=== PATIENT | female | born 1990 | race Caucasian/White ===

== ENCOUNTER 2023-06-19 10:55 | Observation (INO) | payer OTHER, SELFPAY ==
[2023-06-19] VITALS (9 sets, daily range): BP systolic 123–140; BP diastolic 82–91; PULSE 94–134; RESP 12–30; TEMP 36.3–37.2; O2SAT 96–100; BMI 46.4; BMI 45.7
[2023-06-19 11:17] LABS: Bedside Glucose 101 mg/dL (74-106)
--- NOTE | 2023-06-19 11:22 | EDS_ITS ---
HPI <GAMALIEL Wall - Last Filed: 06/19/23 16:05> History of Present Illness Chief Complaint: Nausea/Vomiting Narrative Narrative: Patient is a 32-year-old female with history of obesity anxiety who is currently undergoing a clinical trial for a weight loss drug. It is similar to Ozempic however does have a different name. Patient states that she was building up her dose which she takes an injection every Friday. She started off it 0.25 then 0.5 now 1 mg. She tried 1 mg a few weeks ago, had significant constipation, belly pain as well as nausea and vomiting. They backed her off to 0.5. Patient this last Friday did try the 1 mg, patient states today she felt like she had to have a bowel movement at work, she was unable to go however the send felt sweaty, had multiple episodes of vomitus, became dizzy sweaty and called the ambulance. Patient denies any specific areas of pain, she is still passing gas. Denies any fever or chills. PFSH <GAMALIEL Wall - Last Filed: 06/19/23 16:05> [facility] Medical History (Updated 06/19/23 @ 16:05 by GAMALIEL Wall) Depression Home Medications CAGRISEMA 1 mg QWEEK 06/19/23 [History Last Taken 06/16/23] bupropion HCl 150 mg 24 hr tablet, extended release 150 mg PO DAILY 06/19/23 [History Last Taken 06/19/23] docusate sodium 100 mg capsule (Stool Softener) 100 mg PO DAILY PRN constipation 06/19/23 [History Last Taken Unknown] etonogestrel 68 mg subdermal implant (Nexplanon) 1 implant subdermal 06/19/23 [History Last Taken Unknown] fexofenadine 180 mg tablet (Maddison Allergy) 180 mg PO DAILY 06/19/23 [History Last Taken Unknown] fluoxetine 40 mg capsule 40 mg PO DAILY 06/19/23 [History Last Taken 06/19/23] loratadine 10 mg tablet (Allergy Relief (loratadine)) 10 mg PO DAILY 06/19/23 [History Last Taken 06/19/23] methylphenidate HCl 20 mg tablet 20 mg PO DAILY 06/19/23 [History Last Taken Unknown] ondansetron 4 mg disintegrating tablet 4 mg PO Q8H PRN PRN Nausea #10 tabs 06/19/23 [Rx Last Taken Unknown] spironolactone 100 mg tablet 100 mg PO DAILY 06/19/23 [History Last Taken Unknown] Allergy/AdvReac Type Severity Reaction Status Date / Time doxycycline Allergy Intermediate Hives Verified 06/19/23 11:11 Social History Smoking Status: Never smoker ROS <GAMALIEL Wall - Last Filed: 06/19/23 16:05> ROS ED ROS Narrative Constitutional: Negative for fever, chills, weight loss, weakness. Positive for sweating Eyes: Negative for vision loss, vision change, double vision ENT: Negative for any sore throat, ear pain, congestion Cardiovascular: Negative for any chest pain, tightness, palpitations Respiratory: Negative for any cough, sputum production, hemoptysis, dyspnea, dyspnea on exertion, orthopnea Gastrointestinal: Negative for any diarrhea, blood in stool, blood in vomit. Positive for abdominal pain, nausea and vomiting, constipation : Negative for any urinary frequency, dysuria, retention, blood in urine Muscle skeletal: Negative for any neck pain, back pain Neurological: Negative for any headache, syncope. positive for dizziness Skin: Negative for any rashes, itching, abrasions, lacerations Psychiatric: Negative for any depression, anxiety, stress, suicidal ideation, homicidal ideation Hematologic: Negative for any excessive bruising, easy bleeding EXAM <GAMALIEL Wall - Last Filed: 06/19/23 16:05> Physical Exam Narrative Exam Narrative: Vital signs reviewed. Patient is still somewhat diaphoretic, patient is tachycardic. Alert and oriented. HEET: Head normocephalic atraumatic, TMs clear bilaterally. Posterior pharynx is clear, dry mucous membranes. Nares clear bilaterally. Neck: Supple with no lymphadenopathy or tenderness. No signs of meningismus. Cardiac: Tachycardic rate no murmurs gallops or rubs, equal peripheral pulses bilaterally. Respiratory: Lungs clear to auscultation bilaterally. No chest tenderness. Abdomen: Soft, nontender, nondistended. No abdominal bruit or pulsatile masses. No hepatosplenomegaly Extremities: No peripheral edema, no signs of gross trauma or deformity. Active full range of motion of all extremities. Neuro: Cranial nerves II through XII intact, no focal neurological deficits. Skin: Clean dry and intact with no rash, purpura, petechiae, vesicles or pustules. Backs/flank: No CVA tenderness, no midline spinal tenderness, no deformity. Psych: Normal mood and affect. No SI, HI or acute psychosis. Const Vital Signs: 06/19/23 10:56 06/19/23 11:12 06/19/23 13:06 Temperature 97.6 F L 98 F Temperature Source Oral Pulse Rate 105 H 94 Pulse Rate [Lying] Pulse Rate [Sitting (for 1 minute prior to obtaining)] Pulse Rate [Standing (for 1 minute prior to obtaining)] Respiratory Rate 30 H 16 Respiratory Effort Normal Respiratory Pattern Tachypnea Blood Pressure 123/90 H 137/82 H Blood Pressure [Lying] Blood Pressure [Sitting (for 1 minute prior to obtaining)] Blood Pressure [Standing (for 1 minute prior to obtaining)] Blood Pressure Mean 101 100 Blood Pressure Mean [Lying] Blood Pressure Mean [Sitting (for 1 minute prior to obtaining)] Blood Pressure Mean [Standing (for 1 minute prior to obtaining)] Pulse Ox 96 100 Oxygen Delivery Method Room Air 06/19/23 13:43 06/19/23 14:24 06/19/23 15:36 Temperature 97.6 F L Temperature Source Oral Pulse Rate 117 H 111 H Pulse Rate [Lying] 102 H Pulse Rate [Sitting (for 1 minute prior to obtaining)] 110 H Pulse Rate [Standing (for 1 minute prior to obtaining)] 134 H Respiratory Rate 12 16 Respiratory Effort Respiratory Pattern Blood Pressure 137/86 H 140/88 H Blood Pressure [Lying] 137/82 H Blood Pressure [Sitting (for 1 minute prior to obtaining)] 135/91 H Blood Pressure [Standing (for 1 minute prior to obtaining)] 135/82 H Blood Pressure Mean 103 105 Blood Pressure Mean [Lying] 100 Blood Pressure Mean [Sitting (for 1 minute prior to obtaining)] 105 Blood Pressure Mean [Standing (for 1 minute prior to obtaining)] 99 Pulse Ox 96 100 Oxygen Delivery Method Room Air Room Air 06/19/23 15:55 Temperature 97.3 F L Temperature Source Pulse Rate 111 H Pulse Rate [Lying] Pulse Rate [Sitting (for 1 minute prior to obtaining)] Pulse Rate [Standing (for 1 minute prior to obtaining)] Respiratory Rate 15 Respiratory Effort Respiratory Pattern Blood Pressure 135/82 H Blood Pressure [Lying] Blood Pressure [Sitting (for 1 minute prior to obtaining)] Blood Pressure [Standing (for 1 minute prior to obtaining)] Blood Pressure Mean 99 Blood Pressure Mean [Lying] Blood Pressure Mean [Sitting (for 1 minute prior to obtaining)] Blood Pressure Mean [Standing (for 1 minute prior to obtaining)] Pulse Ox 97 Oxygen Delivery Method Positive obese Nutritional Appearance: obese <Dr. Simone Phoenix MD - Last Filed: 06/19/23 17:35> Physical Exam Const Vital Signs: 06/19/23 10:56 06/19/23 11:12 06/19/23 13:06 Temperature 97.6 F L 98 F Temperature Source Oral Pulse Rate 105 H 94 Pulse Rate [Lying] Pulse Rate [Sitting (for 1 minute prior to obtaining)] Pulse Rate [Standing (for 1 minute prior to obtaining)] Respiratory Rate 30 H 16 Respiratory Effort Normal Respiratory Pattern Tachypnea Blood Pressure 123/90 H 137/82 H Blood Pressure [Lying] Blood Pressure [Sitting (for 1 minute prior to obtaining)] Blood Pressure [Standing (for 1 minute prior to obtaining)] Blood Pressure Mean 101 100 Blood Pressure Mean [Lying] Blood Pressure Mean [Sitting (for 1 minute prior to obtaining)] Blood Pressure Mean [Standing (for 1 minute prior to obtaining)] Pulse Ox 96 100 Oxygen Delivery Method Room Air 06/19/23 13:43 06/19/23 14:24 06/19/23 15:36 Temperature 97.6 F L Temperature Source Oral Pulse Rate 117 H 111 H Pulse Rate [Lying] 102 H Pulse Rate [Sitting (for 1 minute prior to obtaining)] 110 H Pulse Rate [Standing (for 1 minute prior to obtaining)] 134 H Respiratory Rate 12 16 Respiratory Effort Respiratory Pattern Blood Pressure 137/86 H 140/88 H Blood Pressure [Lying] 137/82 H Blood Pressure [Sitting (for 1 minute prior to obtaining)] 135/91 H Blood Pressure [Standing (for 1 minute prior to obtaining)] 135/82 H Blood Pressure Mean 103 105 Blood Pressure Mean [Lying] 100 Blood Pressure Mean [Sitting (for 1 minute prior to obtaining)] 105 Blood Pressure Mean [Standing (for 1 minute prior to obtaining)] 99 Pulse Ox 96 100 Oxygen Delivery Method Room Air Room Air 06/19/23 15:55 Temperature 97.3 F L Temperature Source Pulse Rate 111 H Pulse Rate [Lying] Pulse Rate [Sitting (for 1 minute prior to obtaining)] Pulse Rate [Standing (for 1 minute prior to obtaining)] Respiratory Rate 15 Respiratory Effort Respiratory Pattern Blood Pressure 135/82 H Blood Pressure [Lying] Blood Pressure [Sitting (for 1 minute prior to obtaining)] Blood Pressure [Standing (for 1 minute prior to obtaining)] Blood Pressure Mean 99 Blood Pressure Mean [Lying] Blood Pressure Mean [Sitting (for 1 minute prior to obtaining)] Blood Pressure Mean [Standing (for 1 minute prior to obtaining)] Pulse Ox [address] [facility] <GAMALIEL Wall - Last Filed: 06/19/23 16:05> [facility] Lab Data Labs: Laboratory Results - last 24 hr 06/19/23 06/19/23 06/19/23 10:58 11:08 13:37 WBC 14.8 H RBC 6.45 H Hgb 16.0 H Hct 50.5 H MCV 78.3 L MCH 24.8 L MCHC 31.7 L RDW Std Deviation 41.4 RDW Coeff of Jessica 15.8 H Plt Count 704 H MPV 9.3 Immature Gran % (Auto) 0.700 Neut % (Auto) 63.7 Lymph % (Auto) 27.8 Nelson % (Auto) 7.4 Eos % (Auto) 0.1 Baso % (Auto) 0.3 Absolute Neuts (auto) 9.4 H Absolute Lymphs (auto) 4.11 Nucleated RBC % 0 D-Dimer Quant (PE/DVT) Cancelled Sodium 138 Potassium 3.6 Chloride 109 H Carbon Dioxide 22.0 Anion Gap 7 BUN 10 Creatinine 1.05 H Estim Creat Clear Calc 691.89 Est GFR (MDRD) Af Amer 77 Est GFR (MDRD) Non-Af 64 BUN/Creatinine Ratio 9.5 L Glucose 83 Lactic Acid 1.2 Calcium 10.0 Total Bilirubin 0.20 AST 18 ALT 19 Alkaline Phosphatase 110 Troponin I High Sens 7 Total Protein 9.3 H Albumin 3.8 Globulin 5.5 H Albumin/Globulin Ratio 0.7 L Lipase 48 Serum , Qual NEGATIVE POC Glucose 101 Radiography Diagnostic Testing: Clinical Impression(s) from Imaging Studies Chest CTA 06/19/23 14:35 IMPRESSION: Normal CTA chest examination, without a demonstrated pulmonary embolism or arterial dissection. Electronically Signed: Murray Justice MD at 15:26 EDT , EKG Sinus tachycardia: Comments: Sinus tachycardia, rate 112 bpm UT 132 ms, QRS duration 74 ms, no acute ST elevation, no cute infarct noted. Treatment and Re-Evaluation :: Differential diagnosis includes however is not limited to: Bowel obstruction, medication reaction, vasovagal near syncope, constipation, nausea and vomiting Patient on my evaluation did appear dry, patient is tachycardic, the remainder t he vital signs are stable. Patient will be given IV fluids, IV Reglan, she will also have basic laboratory values completed. At this time, after having a benign belly exam, I do not believe any imaging is necessary at this time. Patient will be reevaluated after medications. Patient on reevaluation is feeling much better. Patient had a very large bowel movement here in the emergency department. Patient CBC did show some hemoconcentration with a hemoglobin of 16 and hematocrit of 50.5. White blood count slightly elevated at 14.8, patient's chemistries show slight renal insufficiency with a creatinine of 1.05. Patient was given 1 L normal saline. Lipase was negative. Electrolytes were unremarkable. On reevaluation, the patient states after her bowel movement she felt much better. She would like water, she was able to pass a p.o. challenge. I did speak with the patient regarding the need to stay hydrated. I do not believe that she should continue taking this drug at 1 mg, she will talk with her physician regarding this. At this time, patient feels comfortable for discharge, she does feel better, patient stable for discharge When the patient was trying to get discharge, the patient had a syncopal episode. Patient was placed back on the board, further workup will be completed including heart enzymes as well as D-dimer as well as urinalysis, urine . Patient's urine Prag was negative. Troponin was negative. Patient did receive a CTA of the chest concerning for any pulmonary embolus. CTA showed no pulmonary embolism or arterial dissection. Patient still remains tachycardic, orthostatic vitals were completed, patient's blood pressure maintained with patient's blood heart rate was up to 140. At this time, do the patient is to be admitted to the hospital. I spoke with hospitalist, they agree, patient be observation, 1/3 L of normal saline will be infused. <Dr. Simone Phoenix MD - Last Filed: 06/19/23 17:35> [facility] Narrative Medical decision making narrative: I have personally performed a face to face assessment of the patient and have reviewed the SANTANA Note. I performed a substantive portion of the visit including all aspects of the following. My kim findings include: History is remarkable for near syncopal episode that occurred at work. Patient denied fever, chills night sweats. She denied cardiac or respiratory symptoms. She states she feels constipated which is due to the medicine she is on. She is in a clinical trial. The trial is in phase 3. There is not much information with regards to side effects etc. since it is in the clinical trial. Went to [employer]'s website to determine if the constipation and near syncope could be due to the medication. She states she had similar problems when the dose was increased. The dose was increased 1 week ago. She denies black or maroon- colored stool. Patient was scheduled to be discharged. She had 2 syncopal episodes. She was not diaphoretic with the episodes. She was pale. She was not bradycardic. She was tachycardic. This would lead I to believe that this was not a vasovagal episode. Exam is morbidly obese 32-year-old woman who appears in no distress. HEENT exam is unremarkable. Lungs are clear auscultation. Heart is regular. There is no murmur, gallop or rub. Abdomen is soft nontender. There is no CVA tenderness noted. There is no asymmetry, swelling, discoloration, leg vein distention, palpable cords or tenderness along the distribution of the deep venous system. Medical Decision Making prior to discharge the thought was that this is a vasovagal response or adverse reaction to the medicine that she is on, Carisema. With her not being tachycardic, tachypneic complain of shortness of breath and elevated D-dimer will obtain CTA to rule out PE. Other additions or changes: CTA of the chest revealed no evidence of PE. Tc us will be admitted for further evaluation and observation since she has had 3 syncopal episodes. Lab Data Attestation: I reviewed the patient's lab results. Lab results narrative: White count is elevated 14.8 thousand with no shift. Hemoglobin 16.6 with hematocrit of 50.5. Lactate is normal at 1.2. Electrolyte panel is unremarkable. Serum test is negative. Troponin is negative. D-dimer was greater than 20. Labs recommended repeat. However with her, and shortness of breath tachycardia single episode will obtain CTA since pretest probability is high. Labs: Laboratory Results - last 24 hr 06/19/23 06/19/23 06/19/23 10:58 11:08 13:37 WBC 14.8 H RBC 6.45 H Hgb 16.0 H Hct 50.5 H MCV 78.3 L MCH 24.8 L MCHC 31.7 L RDW Std Deviation 41.4 RDW Coeff of Jessica 15.8 H Plt Count 704 H MPV 9.3 Immature Gran % (Auto) 0.700 Neut % (Auto) 63.7 Lymph % (Auto) 27.8 Nelson % (Auto) 7.4 Eos % (Auto) 0.1 Baso % (Auto) 0.3 Absolute Neuts (auto) 9.4 H Absolute Lymphs (auto) 4.11 Nucleated RBC % 0 D-Dimer Quant (PE/DVT) Cancelled Sodium 138 Potassium 3.6 Chloride 109 H Carbon Dioxide 22.0 Anion Gap 7 BUN 10 Creatinine 1.05 H Estim Creat Clear Calc 691.89 Est GFR (MDRD) Af Amer 77 Est GFR (MDRD) Non-Af 64 BUN/Creatinine Ratio 9.5 L Glucose 83 Lactic Acid 1.2 Calcium 10.0 Total Bilirubin 0.20 AST 18 ALT 19 Alkaline Phosphatase 110 Troponin I High Sens 7 Total Protein 9.3 H Albumin 3.8 Globulin 5.5 H Albumin/Globulin Ratio 0.7 L Lipase 48 Serum , Qual NEGATIVE POC Glucose 101 Radiography Diagnostic Testing: Clinical Impression(s) from Imaging Studies Chest CTA 06/19/23 14:35 IMPRESSION: Normal CTA chest examination, without a demonstrated pulmonary embolism or arterial dissection. Electronically Signed: Murray Justice MD at 15:26 EDT , Discharge Plan Dx/Rx/DC Orders Clinical Impression: Medication adverse effect, Vaso vagal episode, Constipation, Acute dehydration, Tachycardia Disposition Disposition: Acute Care Hospital [facility] Discharge Date/Time: 06/19/23 17:29
[2023-06-19 11:23] LABS: Absolute Lymphocyte Count 4.11 X10^3/uL (0.83-4.51); Absolute Neutrophil Count 9.4 X10^3/uL (2.0-7.7); Basophil# 0.04 X10^3/uL; Basophil% 0.3 % (0-1); Eosinophil# 0.02 X10^3/uL; Eosinophils% 0.1 % (0-5); Hematocrit 50.5 % (37-47); Lymphocyte # 4.11 X10^3/ul (0.83-4.51); Lymphocyte % 27.8 % (19-41); Mean Corp Hgb Conc 31.7 g/dL (32-36); Mean Corpuscular Hgb 24.8 pg (27.0-32.0); Mean Corpuscular Volume 78.3 fL (81-99); Mean Platelet Vol. 9.3 fl (6.2-12.0); Monocyte% 7.4 % (0-10); NRBC Flagged by Analyzer 0 % (0-5); Neutrophil % 63.7 % (47-70); Platelet Count 704 K/mm3 (150-450); RBC Distribution Width CV 15.8 % (11.6-14.6); RBC Distribution Width SD 41.4 fl (35.1-43.9); Red Blood Count 6.45 M/mm3 (4.2-5.4); White Blood Count 14.8 K/mm3 (4.4-11.0)
[2023-06-19] MEDS: Metoclopramide 10 MG/2 ML Vial 5 MG IV (11:25)
[2023-06-19] MEDS: 0.9% Normal Saline (1000mL) 1,000 ML 1000 ML IV (11:25)
[2023-06-19 11:40] LABS: ALB/GLOB Ratio 0.7 RATIO (0.9-2.4); AST(SGOT) 18 U/L (15-37); Alanine Aminotransfer ALT/SGPT 19 U/L (13-56); Albumin, Serum 3.8 g/dL (3.2-5.0); Alkaline Phosphatase 110 U/L (45-117); Anion Gap 7 (5-15); BUN 10 mg/dL (7-18); BUN/Creat Ratio 9.5 RATIO (10-20); Chloride 109 mmol/L (98-107); Creatinine, Serum 1.05 mg/dL (0.55-1.02); EST Glomerular Filtration Rate 64 mL/min (>60); Est Glom Filt Rate - Afr Amer 77 mL/min (>60); Estimated Creatinine Clearance 691.89 ml/min; Globulin 5.5 g/dL (2.2-4.2); Glucose 83 mg/dL (74-106); Lipase 48 U/L (13-75); Potassium 3.6 mmol/L (3.5-5.1); Protein, Total 9.3 g/dL (6.4-8.2); Sodium Level 138 mmol/L (136-145)
--- NOTE | 2023-06-19 13:17 | EKG12_ITS ---
Test Reason : SYNCOPE Blood Pressure : / mmHG Vent. Rate : 112 BPM Atrial Rate : 112 BPM P-R Int : 132 ms QRS Dur : 074 ms QT Int : 308 ms P-R-T Axes : 044 042 038 degrees QTc Int : 420 ms Sinus tachycardia Otherwise normal ECG Confirmed by Ace Wilder ([id number]), state editor GAYLE LEE ([id number]) on 06/20/2023 11:04:34 AM Referred By: ANNABEL Confirmed By:Ace Wilder
--- NOTE | 2023-06-19 13:30 | ED.RN ---
PT WAS DISCHARGED AND WAS GETTING DRESSED WHILE TALKING TO MOTHER. PER MOM PT WALKED OVER TO COUNTER TO GET A WIPE AND PASSED OUT. MOM CAME AND GOT THIS NURSE. WHEN THIS NURSE WENT INTO THE ROOM PT WAS LAYING ON HER SIDE AND LOOKING AT ME. CALL LIGHT WAS PULLED OUT OF THE WALL BY MOM. TOOK ROUGHLY 30 SECS FOR PT TO RESPOND VERBALLY. SAT PT UP AND STAYED IN THAT POSITION FOR SEVERAL MINUTES TIL PT FELT LIKE SHE WAS OK TO STAND. PT WAS ABLE TO STAND WITH MINIMAL ASSISTANCE. WHEN TRYING TO GET HER TO STEP TOWARDS THE BED THE PT TURNED VERY PALE AND PASSED OUT AGAIN AND WAS SLOWLY LOWERED TO THE FLOOR BY STAFF. STAFF ASSIST LIGHT WAS PUSHED, AND DR WAS CALLED TO ROOM. PTS COLOR RETURNED AND SHE BECAME ALERT AGAIN. MONITOR WAS PLACED AND PT SHOWED ST. PT WAS ASSISTED BACK INTO BED, PLACED INTO A GOWN AND PLACED ON THE MONITOR. PT DENIES ANY INJURY AT THIS TIME.
[2023-06-19 13:53] LABS: Internal QC Validated? YES +Cl - CLEAR BKGD; Pregnancy, Serum, hCG Quali. NEGATIVE Negative; Record Kit Lot#, Serum Preg. HCG0000718086
[2023-06-19 14:10] LABS: Troponin-I HS (w/2H Reflex) 7 pg/mL (3.0-54.0)
[2023-06-19] MEDS: 0.9% Normal Saline (1000mL) 1,000 ML 999 ML IV ×2 (14:19→16:20)
[2023-06-19 14:22] LABS: Lactic Acid 1.2 mmol/L (0.4-1.9)
--- NOTE | 2023-06-19 14:35 | CT_ITS ---
STUDY: CTA CHEST REASON FOR EXAM: Female, 32 years old. Elevated Dimer RADIATION DOSAGE (If Supplied By Facility): CTDIvol = ( 12.19 ) mGy, DLP = ( 494.35 ) mGycm TECHNIQUE: The examination was performed with the intravenous administration of IV 100mL Isovue-370. Post-processing of the angiographic images was performed, with multiplanar reformation and 3D reconstruction. Individualized dose optimization techniques were used for this CT. COMPARISON: None. FINDINGS: Normal enhancement of the main pulmonary artery and right and left pulmonary arteries. Normal enhancement of the bilateral peripheral pulmonary arteries. There is no demonstrated pulmonary embolism. Normal thoracic aorta and visualized great vessels. There is no demonstrated aortic dissection. Normal heart and pericardium. Normal mediastinum. Normal hilar regions. Normal visualized trachea and bronchi. The lungs are well expanded. Normal pulmonary parenchyma. Normal pleura. Normal chest wall structures. Normal osseous structures. Normal visualized upper abdomen. CT/CTA Chest W/WO Contrast IMPRESSION: Normal CTA chest examination, without a demonstrated pulmonary embolism or arterial dissection. Electronically Signed: Murray Justice MD at 15:26 EDT ,
[2023-06-19 15:44] LABS: Reflex Troponin-HS? (from REC) Y
[2023-06-19] MEDS: 0.9% Normal Saline (1000mL) 1,000 ML 125 ML IV (18:40)
--- NOTE | 2023-06-19 19:22 | PCM.HP.STD ---
[facility] - [facility] Date of Admission: 06/19/23 [facility] Narrative FORTINO BARNETT, is a 32 F who presents to the hospital with constipation as well as nausea and vomiting from being on a trial medication for weight loss similar to Ozempic. She started this medication about 5 months ago and was initially on 0.25 mg and then went up to 0.5 mg and at both of these dosages she did not have a significant issue but then when she went to 1 mg she developed nausea and vomiting and constipation. She was placed on fiber supplements as well as a stool softener and was taken back down to 0.5 mg. She went back up to 1 mg this Friday and started having problems again. In the ER she was found to be dehydrated with a hemoglobin of 16 as well as a white count of 14.8 without any other signs of infection. Creatinine was 1.05 which is likely close to her baseline that we do not have a baseline. She was given 2 L of fluid and there was an attempt to discharge her however she had an episode of syncope. CTA of the chest was negative for PE and initial troponin was normal. They did orthostatic vital signs and she was not orthostatic however her heart rate went up about 30-40 points consistent with POTS. She is also on Aldactone for PCOS and she was not aware that this is a diuretic. [facility] Medical History Anxiety Asthma Depression Non-smoker Home Medications CAGRISEMA 1 mg subcut QWEEK 06/19/23 [History Last Taken 06/16/23] bupropion HCl 150 mg 24 hr tablet, extended release 150 mg PO DAILY 06/19/23 [History Last Taken 06/19/23] docusate sodium 100 mg capsule (Stool Softener) 100 mg PO DAILY PRN constipation 06/19/23 [History Last Taken Unknown] etonogestrel 68 mg subdermal implant (Nexplanon) 1 implant subdermal 06/19/23 [History Last Taken Unknown] fexofenadine 180 mg tablet (Maddison Allergy) 180 mg PO DAILY 06/19/23 [History Last Taken Unknown] fluoxetine 40 mg capsule 40 mg PO DAILY 06/19/23 [History Last Taken 06/19/23] loratadine 10 mg tablet (Allergy Relief (loratadine)) 10 mg PO DAILY 06/19/23 [History Last Taken 06/19/23] methylphenidate HCl 20 mg tablet 20 mg PO DAILY 06/19/23 [History Last Taken Unknown] ondansetron 4 mg disintegrating tablet 4 mg PO Q8H PRN PRN Nausea #10 tabs 06/19/23 [Rx Last Taken Unknown] spironolactone 100 mg tablet 100 mg PO DAILY 06/19/23 [History Last Taken Unknown] Allergy/AdvReac Type Severity Reaction Status Date / Time doxycycline Allergy Intermediate Hives Verified 06/19/23 11:11 Family History (Updated 06/19/23 @ 19:[address] Jules Giles MD) Other Hypertension no surgical history Social History Smoking Status: Never smoker ROS Constitutional Constitutional: Denies chills, fatigue, fever(s) or malaise Eyes Eyes: Denies blurry vision ENT HEENT: Denies headache(s) or nasal discharge Cardiovascular Cardiovascular: Reports syncope; Denies chest pain or dyspnea on exertion Respiratory/Chest Respiratory/Chest: Denies cough, shortness of breath at rest or shortness of breath with exertion Gastrointestinal Gastrointestinal: Reports constipation, nausea and vomiting; Denies diarrhea Genitourinary Genitourinary: Denies dysuria Neurologic Neurologic: Denies focal weakness, numbness or tremor(s) Psychiatric Psychiatric: Denies anxiety or depression Vital Signs Vital Signs Vital Signs: 06/19/23 10:56 06/19/23 11:12 06/19/23 13:06 Temperature 97.6 F L 98 F Temperature Source Oral Pulse Rate 105 H 94 Pulse Rate [Lying] Pulse Rate [Sitting (for 1 minute prior to obtaining)] Pulse Rate [Standing (for 1 minute prior to obtaining)] Respiratory Rate 30 H 16 Respiratory Effort Normal Respiratory Pattern Tachypnea Blood Pressure 123/90 H 137/82 H Blood Pressure [Lying] Blood Pressure [Sitting (for 1 minute prior to obtaining)] Blood Pressure [Standing (for 1 minute prior to obtaining)] Blood Pressure Mean 101 100 Blood Pressure Mean [Lying] Blood Pressure Mean [Sitting (for 1 minute prior to obtaining)] Blood Pressure Mean [Standing (for 1 minute prior to obtaining)] Blood Pressure Source Blood Pressure Position Blood Pressure Location Pulse Ox 96 100 Oxygen Delivery Method Room Air 06/19/23 13:43 06/19/23 14:24 06/19/23 15:36 Temperature 97.6 F L Temperature Source Oral Pulse Rate 117 H 111 H Pulse Rate [Lying] 102 H Pulse Rate [Sitting (for 1 minute prior to obtaining)] 110 H Pulse Rate [Standing (for 1 minute prior to obtaining)] 134 H Respiratory Rate 12 16 Respiratory Effort Respiratory Pattern Blood Pressure 137/86 H 140/88 H Blood Pressure [Lying] 137/82 H Blood Pressure [Sitting (for 1 minute prior to obtaining)] 135/91 H Blood Pressure [Standing (for 1 minute prior to obtaining)] 135/82 H Blood Pressure Mean 103 105 Blood Pressure Mean [Lying] 100 Blood Pressure Mean [Sitting (for 1 minute prior to obtaining)] 105 Blood Pressure Mean [Standing (for 1 minute prior to obtaining)] 99 Blood Pressure Source Blood Pressure Position Blood Pressure Location Pulse Ox 96 100 Oxygen Delivery Method Room Air Room Air 06/19/23 15:55 06/19/23 16:40 06/19/23 17:48 Temperature 97.3 F L 99.0 F Temperature Source Temporal Pulse Rate 111 H 103 H 94 Pulse Rate [Lying] Pulse Rate [Sitting (for 1 minute prior to obtaining)] Pulse Rate [Standing (for 1 minute prior to obtaining)] Respiratory Rate 15 17 20 H Respiratory Effort Respiratory Pattern Blood Pressure 135/82 H 138/86 H 140/91 H Blood Pressure [Lying] Blood Pressure [Sitting (for 1 minute prior to obtaining)] Blood Pressure [Standing (for 1 minute prior to obtaining)] Blood Pressure Mean 99 103 107 Blood Pressure Mean [Lying] Blood Pressure Mean [Sitting (for 1 minute prior to obtaining)] Blood Pressure Mean [Standing (for 1 minute prior to obtaining)] Blood Pressure Source Monitor Blood Pressure Position Semi-Fowlers Blood Pressure Location Left Arm Pulse Ox 97 98 99 Oxygen Delivery Method Room Air Room Air Weight Weight: 291 lb 12.8 oz Body Mass Index (BMI) 45.7 Physical Exam Narrative General: Alert, Oriented x3, Cooperative, No apparent distress HEENT: Atraumatic, PERRLA, EOMI, Normocephalic Oral: Moist Mucosa Neck: Supple, No JVD Lungs: Diminished, Normal air movement, No rhonchi, No wheeze, No rales Cardiovascular: Tachycardia, Regular Rhythm, Normal S1, Normal S2, No murmurs Abdomen: Soft, Non Tender, Non-Distended, No Hepato-splenomegaly Extremities: No edema, Capillary Refill Less than 3 Seconds Skin: No rashes, No breakdown Musculoskeletal: No Tenderness to Palpation of Joints or Extremities Neurological: No focal neurological deficits, Motor Exam 5/5 strength throughout, Sensory exam intact to light touch and pain Psych/Mental Status: Normal Affect, Appropriate Results Lab / Micro Data 06/19/23 11:08 06/19/23 11:08 Labs: Laboratory Results - last 24 hr 06/19/23 10:58: POC Glucose 101 06/19/23 11:08: WBC 14.8 H, RBC 6.45 H, Hgb 16.0 H, Hct 50.5 H, MCV 78.3 L, MCH 24.8 L, MCHC 31.7 L, RDW Std Deviation 41.4, RDW Coeff of Jessica 15.8 H, Plt Count 704 H, MPV 9.3, Immature Gran % (Auto) 0.700, Neut % (Auto) 63.7, Lymph % (Auto) 27.8, [place] % (Auto) 7.4, Eos % (Auto) 0.1, Baso % (Auto) 0.3, Absolute Neuts (auto) 9.4 H, Absolute Lymphs (auto) 4.11, Nucleated RBC % 0, Sodium 138, Potassium 3.6, Chloride 109 H, Carbon Dioxide 22.0, Anion Gap 7, BUN 10, Creatinine 1.05 H, Estim Creat Clear Calc 691.89, Est GFR (MDRD) Af Amer 77, Est GFR (MDRD) Non-Af 64, BUN/Creatinine Ratio 9.5 L, Glucose 83, Calcium 10.0, Total Bilirubin 0.20, AST 18, ALT 19, Alkaline Phosphatase 110, Total Protein 9.3 H, Albumin 3.8, Globulin 5.5 H, Albumin/Globulin Ratio 0.7 L, Lipase 48 06/19/23 13:37: D-Dimer Quant (PE/DVT) Cancelled, Lactic Acid 1.2, Troponin I High Sens 7, Serum , Qual NEGATIVE Imaging Radiology Impression Chest CTA 06/19/23 14:35 IMPRESSION: Normal CTA chest examination, without a demonstrated pulmonary embolism or arterial dissection. Electronically Signed: Murray Justice MD at 15:26 EDT , Assessment & Plan Assessment/Plan (1) Acute dehydration: (2) POTS (postural orthostatic tachycardia syndrome): PLAN: Plan 1. POTS versus acute dehydration ? She does state that she frequently gets dizzy spells where she stands up from her desk. She is on Aldactone and she was unaware that this was a diuretic but she does drink plenty of water corroborated by family ? She is feeling a little bit better after 2 L of IV fluids. Given her weight we will have her be given another 1 L fluid bolus and then place her on IV fluids overnight ? Repeat CBC and BMP in the morning to verify that her leukocytosis was reactive and secondary to dehydration. ? We will hold her Aldactone and would likely benefit from a reduced dose on discharge ? We also discussed the need to discontinue her trial weight loss medication 2. ADHD/anxiety/depression ? Stable ? Continue with her home medications DVT: Ambulation 75 minutes was spent on direct patient care, including documentation as well as chart review and collaboration with colleagues Charges/Coding Visit Charges Inpatient E&M: 10017 Init Hosp L3
[2023-06-19 20:15] LABS: Troponin-I HS 8 pg/mL (3.0-54.0)
[2023-06-20] VITALS (7 sets, daily range): BP systolic 113–147; BP diastolic 74–88; PULSE 60–95; RESP 16–20; TEMP 36.6–37.2; O2SAT 97–100
[2023-06-20] MEDS: 0.9% Normal Saline (1000mL) 1,000 ML 125 ML IV ×3 (01:50→16:45)
[2023-06-20 07:54] LABS: Absolute Lymphocyte Count 2.15 X10^3/uL (0.83-4.51); Absolute Neutrophil Count 10.3 X10^3/uL (2.0-7.7); Basophil# 0.05 X10^3/uL; Basophil% 0.4 % (0-1); Eosinophil# 0.33 X10^3/uL; Eosinophils% 2.4 % (0-5); Hematocrit 36.2 % (37-47); Hemoglobin 11.2 g/dL (12.0-15.0); Lymphocyte # 2.15 X10^3/ul (0.83-4.51); Lymphocyte % 15.7 % (19-41); Mean Corp Hgb Conc 30.9 g/dL (32-36); Mean Corpuscular Hgb 24.6 pg (27.0-32.0); Mean Corpuscular Volume 79.6 fL (81-99); Mean Platelet Vol. 9.3 fl (6.2-12.0); Monocyte# 0.75 X10^3/uL; Monocyte% 5.5 % (0-10); NRBC Flagged by Analyzer 0 % (0-5); Neutrophil # 10.32 X10^3/uL (2.7-7.7); Neutrophil % 75.3 % (47-70); Platelet Count 400 K/mm3 (150-450); RBC Distribution Width CV 14.9 % (11.6-14.6); RBC Distribution Width SD 42.7 fl (35.1-43.9); Red Blood Count 4.55 M/mm3 (4.2-5.4); White Blood Count 13.7 K/mm3 (4.4-11.0)
[2023-06-20] MEDS: Methylphenidate HCl 5 MG Tablet 20 MG PO (08:05)
[2023-06-20] MEDS: Fluoxetine HCl 40 MG CAPSULE PO (08:10)
[2023-06-20] MEDS: buPROPion (XL) 150 MG TABLET.XL PO (08:10)
[2023-06-20 08:32] LABS: Anion Gap 5 (5-15); BUN 6 mg/dL (7-18); BUN/Creat Ratio 8.4 RATIO (10-20); Calcium,Total 8.1 mg/dL (8.5-10.1); Chloride 114 mmol/L (98-107); Creatinine, Serum 0.72 mg/dL (0.55-1.02); EST Glomerular Filtration Rate 99 mL/min (>60); Est Glom Filt Rate - Afr Amer 120 mL/min (>60); Estimated Creatinine Clearance 157.73 ml/min; Glucose 96 mg/dL (74-106); Potassium 3.5 mmol/L (3.5-5.1); Sodium Level 142 mmol/L (136-145)
[2023-06-20] MEDS: 0.9% Saline Lock 10 ML Syringe IV (12:53)
[2023-06-20] MEDS: Ondansetron 4 MG/2 ML Vial IV (12:53)
[2023-06-20] MEDS: Pantoprazole Sodium 40 MG Tablet PO (14:07)
[2023-06-20 14:18] LABS: Bedside Glucose 125 mg/dL (74-106)
--- NOTE | 2023-06-20 14:44 | CT_ITS ---
STUDY: CT ABDOMEN AND PELVIS WITH CONTRAST REASON FOR EXAM: Female, 32 years old. n/v RADIATION DOSAGE (If Supplied By Facility): CTDIvol = ( 17.22 ) mGy, DLP = ( 1925.26 ) mGycm TECHNIQUE: Transaxial images were obtained from the dome of the diaphragm to the symphysis pubis without oral contrast. Oral and amp; IV Gastrografin and amp; 100mL Isovue-300 was administered. Sagittal and coronal images were reconstructed. Individualized dose optimization techniques were used for this CT. COMPARISON: None. FINDINGS: The visualized lung bases are unremarkable. Cardiomegaly. Normal liver. Normal gallbladder and extrahepatic biliary system. Normal spleen. Normal pancreas. Normal bilateral adrenal glands. Normal right kidney. Normal left kidney. Oral contrast noted in the stomach which appears normal. Oral contrast noted in the proximal small bowel which is dilated with multiple air-fluid levels. No bowel wall thickening. No transition point is noted. Multiple air-fluid levels are noted in the colon. The appendix is visualized and appears normal. Normal abdominal aorta. Normal inferior vena cava. Normal retroperitoneum. Normal urinary bladder. Uterus normal. Normal abdominal wall. Normal osseous structures. CT/Abdomen/Pelvis WITH Contrast IMPRESSION: Nonspecific acute ileus. Electronically Signed: Buddy Silva MD at 18:14 EDT ,
--- NOTE | 2023-06-20 17:37 | PCM.DC.SUM ---
Providers Date of Admission: 06/19/23 Date of Discharge: 06/21/23 Primary Care Physician: No Primary Care Phys Reason For Visit: DIZZINESS AND SYNCOPE Diagnosis Discharge Diagnosis (1) Acute dehydration: Status: Acute Code(s): E86.0 - Dehydration (2) POTS (postural orthostatic tachycardia syndrome): Status: Ruled-out Code(s): G90.A - Postural orthostatic tachycardia syndrome [POTS] Medications at Discharge Home Medications CAGRISEMA 1 mg subcut QWEEK 06/19/23 bupropion HCl 150 mg 24 hr tablet, extended release 150 mg PO DAILY 06/19/23 docusate sodium 100 mg capsule (Stool Softener) 100 mg PO DAILY PRN constipation 06/19/23 etonogestrel 68 mg subdermal implant (Nexplanon) 1 implant subdermal 06/19/23 fexofenadine 180 mg tablet (Maddison Allergy) 180 mg PO DAILY 06/19/23 fluoxetine 40 mg capsule 40 mg PO DAILY 06/19/23 loratadine 10 mg tablet (Allergy Relief (loratadine)) 10 mg PO DAILY 06/19/23 methylphenidate HCl 20 mg tablet 20 mg PO DAILY 06/19/23 ondansetron 4 mg disintegrating tablet 4 mg PO Q8H PRN PRN Nausea #10 tabs 06/19/23 loperamide 2 mg capsule (Imodium A-D) 2 mg PO Q6H PRN loose stool #1 cap 06/20/23 pantoprazole 40 mg tablet,delayed release 40 mg PO DAILY #30 tabs 06/20/23 spironolactone 50 mg tablet (Aldactone) 50 mg PO DAILY #30 tabs 06/20/23 Hospital Course Operations None Procedures EKG and - (CTA chest/CT abdomen and pelvis) Summary of Care Provided Minutes Spent on Discharge: 45 Hospital Course: Ms. Santos is a 32-year-old white female who presented to the emergency department [facility] on 06/19/2022 with nausea/vomiting/diarrhea. She has a history of morbid obesity and is currently on a trial with Mounjuro for weight loss. She states she is really just trying to get healthy as she has had a long history of weight problems. She reported that she initially started off with 0.25 and then up to 0.5 and then now 1 mg. She had 1 mg a few weeks ago but had significant constipation, abdominal pain and nausea and vomiting with that. They decreased her dose back to 0.5 but this last Friday she did try the 1 mg dosing again. She reported that she felt like she had to have a bowel movement at work and she was unable to go however she sat there and felt sweaty and had multiple episodes of vomiting and became dizzy. The ambulance was called due to this. She had no abdominal pain and was reporting flatus on presentation. She had no fever or chills. She has been on this medication for almost 6 months now. She was given IV fluids in the emergency department and they attempted to discharge her however she had to go to the bathroom and she had a syncopal episode. With a syncopal episode they obtained a CTA of her chest to rule out PE and it was unremarkable. Her troponin was normal and her EKG was unimpressive. They did do orthostatic vital signs which were unremarkable however her heart rate went up about 30-40 points so they felt she was dehydrated. She also takes Aldactone for PCOS and is on 100 mg daily. She did not realize this was a diuretic. Her CBC showed a mild white count elevation not at 14.8, her hemoglobin was elevated at 16.0 and her platelet count was 704,000. She appeared fairly dehydrated and after receiving 4 L of fluid her counts were much improved. Her chemistry panel on admission showed normal electrolytes however serum creatinine was 1.05 and it appears her baseline runs between 0.5 and 0.7. Her lactic acid was normal. Her liver functions were unremarkable. Her troponin were cycled and were normal x 2. test was negative. Her lipase was normal at 48. She was admitted to the medical floor and aggressively hydrated. She was feeling much better by the a.m. of 06/20/2023 however had a couple episodes of watery diarrhea and nausea with vomiting. Due to this we checked an abdominal CT with IV and p.o. contrast which demonstrated an ileus. She was made n.p.o., placed on IV fluids, and given IV Reglan. By the a.m. of 06/21/2023 she was feeling much better and had no further emesis and her bowels had improved. We trialed her on clear liquids and she did very well so we advanced her to a regular diet and she did well on this as well. Given her improvement we felt she was stable to go home. I highly suspect that the above were reactions related to the Mounjaro that she has been taking and have instructed her to hold this medication. We also decreased her Aldactone from 100 mg daily to 50 mg daily and I have advised her to get compression stockings with 20 to 30 mmHg to help with her lightheadedness as a suspect this was exacerbated by her dehydration related to the above but may not be the sole etiology as she states she has had intermittent lightheadedness especially with quick transitional changes from sitting to standing for some time. She was able to be discharged home in stable condition on 06/20/2023. An antiemetic had already been sent to the pharmacy by the emergency department and we will continue this just in case she has any issues and I have asked her to add as needed Imodium [id number]. I also did send a new prescription for Aldactone for 50 mg with no refills and instructed her that she may cut her current tablets in half as well as Protonix 40 mg daily as she was experiencing some heartburn while hospitalized. She has follow-up appointment with her primary care already set up for Friday. If the nausea vomiting and diarrhea persists off the Mounjaro she may need to follow-up with GI referral information was given and she was instructed to make an appointment if her symptoms do not ernie despite discontinuing her medication but her symptoms were dramatically better at the time of discharge. Discharge diagnoses: Syncope-seems to be related to dehydration in combination with possible vasovagal event Dehydration-resolved Nausea/vomiting/diarrhea Suspected medication side effect PCOS Seasonal allergies ADHD GERD ADHD Depression Morbid obesity Physical Exam Const alert, oriented x3, no apparent distress, no limitations and well nourished; Negative for average body habitus Constitutional Narrative: Morbidly obese, lower middle-aged, white female, sitting up in bed, appears comfortable, nontoxic General Appearance: cooperative, comfortable, well kempt and well developed Orientation / Consciousness: awake, oriented to person, oriented to place and oriented to time Exam Limitations: no limitations Nutritional Appearance: morbidly obese HEENT normocephalic, head/scalp atraumatic, hearing grossly normal bilaterally and moist oral mucous membranes HEENT Narrative: Mallampati 3, no thrush, dentition is good Eyes PERRL, EOMs intact bilaterally and conjunctivae normal Eyes Narrative: No scleral icterus Neck no lymphadenopathy and supple Neck Narrative: Trachea midline, no thyroid enlargement Resp normal respiratory effort, no retractions, no use of accessory muscles and clear to auscultation bilaterally Auscultation: Negative for rales, rhonchi or wheezes Cardio regular rate, regular rhythm, S1 normal heart sound, S2 normal heart sound, no murmurs, no rub, no gallops and no clicks GI normal to inspection, nondistended, normoactive bowel sounds, soft to palpation and non-tender Extremity no clubbing, cyanosis or edema Extremity Narrative: Pedal pulses are 2+ Skin No no rashes or lesions noted, No no wounds, No skin turgor normal and No no jaundice Neuro oriented x3, CN's II-XII intact bilaterally, moves all extremities, no focal motor deficits and no sensory deficits noted Speech: speech normal Motor Exam: strength 5/5 throughout Psych affect normal Psych Narrative: Extremely pleasant, interacts appropriately Weight / BMI Weight Weight: 132.358 kg Body Mass Index (BMI) 45.7 ABG / Lab / Microbiology Data 06/21/23 06:10 06/21/23 06:10 Laboratory: Laboratory Results - last 24 hr 06/19/23 14:22: POC Glucose 125 H 06/19/23 19:47: Troponin I High Sens 8 06/20/23 06:57: WBC 13.7 H, RBC 4.55, Hgb 11.2 L, Hct 36.2 L, MCV 79.6 L, MCH 24.6 L, MCHC 30.9 L, RDW Std Deviation 42.7, RDW Coeff of Jessica 14.9 H, Plt Count 400, MPV 9.3, Immature Gran % (Auto) 0.700, Neut % (Auto) 75.3 H, Lymph % (Auto) 15.7 L, [place] % (Auto) 5.5, Eos % (Auto) 2.4, Baso % (Auto) 0.4, Absolute Neuts (auto) 10.3 H, Absolute Lymphs (auto) 2.15, Nucleated RBC % 0, Sodium 142, Potassium 3.5, Chloride 114 H, Carbon Dioxide 23.0, Anion Gap 5, BUN 6 L, Creatinine 0.72, Estim Creat Clear Calc 157.73, Est GFR (MDRD) Af Amer 120, Est GFR (MDRD) Non-Af 99, BUN/Creatinine Ratio 8.4 L, Glucose 96, Calcium 8.1 L Microbiology: Microbiology 06/20/23 10:35 Stool Enteric Bacteriology - Final 06/20/23 10:35 Stool Clostridioides difficile (PCR) - Final D/C Instructions Discharge Diet: Low fat / Low cholesterol Discharge Activity: Return to Normal Activity Return to work on: 06/23/23 Meaningful Use Info Meaningful Use Diagnoses (Choose all that apply): None applicable Discharge Plan Admission Admit Date/Time: 06/19/23 16:29 Primary Reason for Your Visit: Nausea/vomiting/diarrhea Attending Provider: Ruth Ann Elena Primary Care Provider: Braydon Tejeda Consulting Providers: Jules Giles Instructions Additional Instructions / Restrictions: 1. Buy knee-high compression stockings with pressure of 20 to mL 30 mmHg--> these can be found at a local pharmacy or DME supplier. 2. I did give you the monitor technician information below-Dr. New. If your symptoms do not improve with time being off the Mounjaro I would recommend following up with him Discharge Orders/Prescriptions Prescriptions: New ondansetron 4 mg tablet,disintegrating 4 mg PO Q8H PRN PRN (Reason: Nausea) Qty: 10 0RF spironolactone [Aldactone] 50 mg tablet 50 mg PO DAILY Qty: 30 0RF pantoprazole 40 mg Tablet,Delayed Release (Dr/Ec) 40 mg PO DAILY Qty: 30 0RF loperamide [Imodium A-D] 2 mg capsule 2 mg PO Q6H PRN (Reason: loose stool) Qty: 1 0RF Continued fluoxetine 40 mg capsule 40 mg PO DAILY bupropion HCl 150 mg tablet extended release 24 hr 150 mg PO DAILY loratadine [Allergy Relief (loratadine)] 10 mg tablet 10 mg PO DAILY fexofenadine [Maddison Allergy] 180 mg tablet 180 mg PO DAILY methylphenidate HCl 20 mg tablet 20 mg PO DAILY docusate sodium [Stool Softener] 100 mg capsule 100 mg PO DAILY PRN (Reason: constipation) Nexplanon 68 mg implant 1 implant subdermal Held CAGRISEMA 1 mg pen injector 1 mg subcut QWEEK Hold Instructions: Until you discuss your sx with your PCP Discontinued spironolactone 100 mg tablet 100 mg PO DAILY Referrals / Follow Up: Braydon Tejeda DO [Primary Care Provider] - Savage New DO [Med Staff - Active Staff] - See Referral Note (As needed) Disposition Disposition (needs filled in before D/C Order can be placed): Home, Self Care Charges/Coding Visit Charges Inpatient E&M: 05684 Disch Hosp >30min
--- NOTE | 2023-06-20 17:55 | PN.HOSP_ITS ---
Reason for Visit Reason for Visit: Diagnoses Dehydration (06/19/23) Postural orthostatic tachycardia syndrome [POTS] (06/19/23) Subjective Subjective Ms. Santos is a 32-year-old white female who presented to the emergency department [facility] on 06/19/2022 with nausea/vomiting/diarrhea. She has a history of morbid obesity and is currently on a trial with Mounjuro for weight loss. She states she is really just trying to get healthy as she has had a long history of weight problems. She reported that she initially started off with 0.25 and then up to 0.5 and then now 1 mg. She had 1 mg a few weeks ago but had significant constipation, abdominal pain and nausea and vomiting with that. They decreased her dose back to 0.5 but this last Friday she did try the 1 mg dosing again. She reported that she felt like she had to have a bowel movement at work and she was unable to go however she sat there and felt sweaty and had multiple episodes of vomiting and became dizzy. The ambulance was called due to this. She had no abdominal pain and was reporting flatus on presentation. She had no fever or chills. She has been on this medication for almost 6 months now. She was given IV fluids in the emergency department and they attempted to discharge her however she had to go to the bathroom and she had a syncopal episode. With a syncopal episode they obtained a CTA of her chest to rule out PE and it was unremarkable. Her troponin was normal and her EKG was unimpressive. They did do orthostatic vital signs which were unremarkable however her heart rate went up about 30-40 points so they felt she was dehydrated. She also takes Aldactone for PCOS and is on 100 mg daily. She did not realize this was a diuretic. Her CBC showed a mild white count elevation not at 14.8, her hemoglobin was elevated at 16.0 and her platelet count was 704,000. She appeared fairly dehydrated and after receiving 4 L of fluid her counts were much improved. Her chemistry panel on admission showed normal electrolytes however serum creatinine was 1.05 and it appears her baseline runs between 0.5 and 0.7. Her lactic acid was normal. Her liver functions were unremarkable. Her troponin were cycled and were normal x 2. test was negative. Her lipase was normal at 48. She was admitted to the medical floor and aggressively hydrated. Patient was feeling much better on the morning of 06/20/2023 however she then de veloped profuse watery diarrhea and nausea. We elected to perform a CT of the abdomen pelvis. Objective Data Objective Data Vital Signs: Vital Signs Temp Pulse Resp BP Pulse Ox O2 Del Method 98.3 F 60 20 H 134/80 H 100 Room Air 06/20/23 14:09 06/20/23 14:12 06/20/23 14:09 06/20/23 14:06/20/23 14:12 06/20/23 14:12 Oxygen Delivery Method Room Air Weight: 132.358 kg Body Mass Index (BMI) 45.7 Intake & Output: Intake and Output for Last 24 Hours 06/18/23 06/19/23 06/20/23 23:59 23:59 23:59 Intake Total 3100 / 3100 2760.42 / 2760.42 Output Total 2150 / 2150 Balance 3100 / 2550 610.42 / 610.42 Lab / Micro Data 06/21/23 06:10 06/20/23 06:57 Labs: Laboratory Results - last 24 hr 06/19/23 14:22: POC Glucose 125 H 06/19/23 19:47: Troponin I High Sens 8 06/20/23 06:57: WBC 13.7 H, RBC 4.55, Hgb 11.2 L, Hct 36.2 L, MCV 79.6 L, MCH 24.6 L, MCHC 30.9 L, RDW Std Deviation 42.7, RDW Coeff of Jessica 14.9 H, Plt Count 400, MPV 9.3, Immature Gran % (Auto) 0.700, Neut % (Auto) 75.3 H, Lymph % (Auto) 15.7 L, Terrell % (Auto) 5.5, Eos % (Auto) 2.4, Baso % (Auto) 0.4, Absolute Neuts (auto) 10.3 H, Absolute Lymphs (auto) 2.15, Nucleated RBC % 0, Sodium 142, Potassium 3.5, Chloride 114 H, Carbon Dioxide 23.0, Anion Gap 5, BUN 6 L, Creatinine 0.72, Estim Creat Clear Calc 157.73, Est GFR (MDRD) Af Amer 120, Est GFR (MDRD) Non-Af 99, BUN/Creatinine Ratio 8.4 L, Glucose 96, Calcium 8.1 L Micro: Microbiology 06/20/23 10:35 Stool Enteric Bacteriology - Final 06/20/23 10:35 Stool Clostridioides difficile (PCR) - Final Physical Exam Const alert, oriented x3, no apparent distress, no limitations and well nourished; Negative for average body habitus Constitutional Narrative: Morbidly obese, lower middle-aged, white female, sitting up in bed, appears comfortable, nontoxic HEENT normocephalic, head/scalp atraumatic, hearing grossly normal bilaterally and moist oral mucous membranes HEENT Narrative: Mallampati 3, no thrush, dentition is good Eyes PERRL, EOMs intact bilaterally and conjunctivae normal Eyes Narrative: No scleral icterus Neck no lymphadenopathy and supple Neck Narrative: Trachea midline, no thyroid enlargement Resp normal respiratory effort, no retractions, no use of accessory muscles and clear to auscultation bilaterally Auscultation: Negative for rales, rhonchi or wheezes Cardio regular rate, regular rhythm, S1 normal heart sound, S2 normal heart sound, no murmurs, no rub, no gallops and no clicks GI soft to palpation, non-tender and non-distended GI Narrative: Bowel sounds are slightly hypoactive Extremity no clubbing, cyanosis or edema Extremity Narrative: Pedal pulses are 2+ Skin no rashes or lesions noted, no wounds, skin turgor normal, no jaundice, no petechiae and no mottling Neuro oriented x3, moves all extremities and no focal motor deficits Neuro Narrative: Able to ambulate independently throughout the room Speech: speech normal Motor Exam: strength 5/5 throughout Psych affect normal Psych Narrative: Extremely pleasant, interacts appropriately Assessment & Plan Assessment/Plan (1) Tachycardia: (2) Acute dehydration: (3) Syncope: (4) Ileus: (5) Diarrhea: PLAN: Plan Nausea/vomiting/diarrhea/constipation -Patient was doing better and then developed more symptoms -CT of the abdomen pelvis was obtained and showed ileus -N.p.o. -IV fluids -Reglan 10 every 6 -Will reevaluate in the morning and restart diet if possible -Highly suspect that this is related to her Mounjaro Syncope -Sounds like it was vasovagal event or micturition syncope -No further events Tachycardia -Resolved -Highly suspect it was related to dehydration Dehydration -Patient received 4 L of IV fluids -Much improved PCOS -Has been on Aldactone 100 daily -Long discussion with the patient and we will reduce this dose to 50 daily as it sounds like she is been having some orthostasis type symptoms for some time -I also advised her to buy some compression stockings to wear when she is at work -Patient has Nexplanon -Continue outpatient management with [facility] Seasonal allergies -Continue home loratadine -Continue home Maddison ADHD -Restart methylphenidate at discharge GERD -Patient not on anything at baseline -Start Protonix daily -Will likely send home with this Depression -Continue home bupropion -Continue home fluoxetine Morbid obesity -BMI is 45.7 -Complicates treatment, prognosis, outcomes -Recommend weight loss which patient is trying to do DVT prophylaxis -Will start Lovenox twice daily with ileus and inability to discharge CODE STATUS Full code Charges/Coding Visit Charges Inpatient E&M: 57244 Subs Hosp L3
[2023-06-20] MEDS: Lactated Ringers 1,000 ML 100 ML IV (19:47)
[2023-06-20] MEDS: Metoclopramide 10 MG/2 ML Vial IV (19:47)
[2023-06-21] MEDS: Metoclopramide 10 MG/2 ML Vial IV ×3 (00:06→11:16)
[2023-06-21 02:00] VITALS: BP 109/69; PULSE 85; RESP 16; TEMP 37; O2SAT 97
[2023-06-21] MEDS: Lactated Ringers 1,000 ML 100 ML IV (05:13)
[2023-06-21 06:23] LABS: Absolute Lymphocyte Count 2.19 X10^3/uL (0.83-4.51); Absolute Neutrophil Count 6.4 X10^3/uL (2.0-7.7); Basophil# 0.03 X10^3/uL; Basophil% 0.3 % (0-1); Eosinophil# 0.32 X10^3/uL; Eosinophils% 3.3 % (0-5); Hematocrit 34.5 % (37-47); Hemoglobin 10.6 g/dL (12.0-15.0); Lymphocyte # 2.19 X10^3/ul (0.83-4.51); Lymphocyte % 22.6 % (19-41); Mean Corp Hgb Conc 30.7 g/dL (32-36); Mean Corpuscular Hgb 24.4 pg (27.0-32.0); Mean Corpuscular Volume 79.3 fL (81-99); Monocyte% 7.2 % (0-10); NRBC Flagged by Analyzer 0 % (0-5); Neutrophil # 6.43 X10^3/uL (2.7-7.7); Neutrophil % 66.2 % (47-70); Platelet Count 350 K/mm3 (150-450); RBC Distribution Width CV 14.7 % (11.6-14.6); RBC Distribution Width SD 42.7 fl (35.1-43.9); Red Blood Count 4.35 M/mm3 (4.2-5.4); White Blood Count 9.7 K/mm3 (4.4-11.0)
[2023-06-21 06:50] LABS: Anion Gap 5 (5-15); BUN 3 mg/dL (7-18); BUN/Creat Ratio 3.9 RATIO (10-20); Calcium,Total 8.4 mg/dL (8.5-10.1); Chloride 115 mmol/L (98-107); Creatinine, Serum 0.76 mg/dL (0.55-1.02); EST Glomerular Filtration Rate 92 mL/min (>60); Est Glom Filt Rate - Afr Amer 112 mL/min (>60); Estimated Creatinine Clearance 149.43 ml/min; Glucose 88 mg/dL (74-106); Potassium 3.4 mmol/L (3.5-5.1); Sodium Level 142 mmol/L (136-145)
[2023-06-21 08:38] VITALS: BP 122/78; PULSE 89; RESP 18; TEMP 36.6; O2SAT 96
[2023-06-21] MEDS: Potassium Chloride Oral Soln 20 MEQ/15 ML UDC 40 MEQ PO (08:42)
[2023-06-21] MEDS: Pantoprazole Sodium 40 MG Tablet PO (08:43)
[2023-06-21] MEDS: Fluoxetine HCl 40 MG CAPSULE PO (08:44)
[2023-06-21] MEDS: buPROPion (XL) 150 MG TABLET.XL PO (08:44)
[2023-06-21] MEDS: Methylphenidate HCl 5 MG Tablet 20 MG PO (08:46)
[2023-06-21] MEDS: 0.9% Saline Lock 10 ML Syringe IV (11:16)
--- NOTE | 2023-06-21 12:35 | CASEMGMT ---
RN CM Assessment: Face to Face with pt for initial transition planning/care coordination assessment. RN CM introduced self and role at [facility], pt voices understanding and consents to assessment. Pt is A&O x4 and answers all questions appropriately at this time. Care providers, pharmacy, and demographics verified/updated. Admitting Dx: Dizziness and syncope PCP:Dr. Braydon Tejeda Specialists: None Preferred Pharmacy: [facility] Insurance: [employer] Prescription Benefit: yes LNOK: Mom Roxana Santos Living Arrangements: Pt lives at home with parent. Patient is independent with IADLs and ADLs at baseline. Transportation: Pt drives self and denies concerns with transportation. DME:None HHC/SNF: No history Pt states no concerns with going home at time of dc. Pt states no further concerns/needs. CM to follow. Advised pt to ask CM if any further question/concerns/needs arise, voices understanding. Pt Goal: Home Plan: Home with no needs Radha BHAGAT, RN, CCM
--- NOTE | 2023-06-21 13:03 | NURSING ---
per [facility] pharmacist inpatient pharmacy- he has pt homegoing medications and will bring them up for discharge to pt
[2023-06-21 13:50] VITALS: BP 150/89; PULSE 102; RESP 18; TEMP 36.6; O2SAT 100
== END 2023-06-21 14:00 | disposition home or self-care (01) ==
LOC: ED 12:55 → MS3 16:42
PROVIDERS: Nurse Practitioner; Admitting Provider Family Medicine; Emergency Provider Emergency Medicine; PCP Family Medicine; Visit Provider Internal Medicine
DX: E86.0 Dehydration (principal); Z68.42 Body mass index [BMI] 45.0-49.9, adult; E66.01 Morbid (severe) obesity due to excess calories; G90.A Postural orthostatic tachycardia syndrome [POTS]; K21.9 Gastro-esophageal reflux disease without esophagitis; F32.A Depression, unspecified; R55 Syncope and collapse; J30.2 Other seasonal allergic rhinitis; Z79.899 Other long term (current) drug therapy
CPT/HCPCS: 36415; 71275; 74177; 80048; 80053; 82962; 83605; 83690; 84484; 84703; 85025; 85379; 87493; 87506; 93005; 96361; 96374; 96375; 96376; 99221; 99285; J7030; J7120; Q9967; A4216; G0378; J2405